=== PATIENT | female | born 1980 | race Caucasian/White ===

== ENCOUNTER 2018-10-08 18:03 | Emergency (ER) | payer BC, OTHER ==
[~2018-10-08] VITALS: Ht 170.2 cm; Wt 73.0 kg
[2018-10-08 18:11] VITALS: Ht 170.2 cm; Wt 73.0 kg
[2018-10-08] MEDS ORDERED: SOD CHLORIDE 0.9% 1,000 ML IV STA (19:30)
[2018-10-08] MEDS ORDERED: ONDANSETRON 4 MG INJ IV STA (19:30)
[2018-10-08] MEDS ORDERED: SOD CHLORIDE 0.9% 100 ML ONE (20:35)
[2018-10-08] MEDS ORDERED: IOHEXOL 300MG/ML 150 ML BTL ONE (20:35)
--- NOTE | 2018-10-08 21:20 | ERD ---
ER Documentation Chief Complaint Chief Complaint abdominal pain, bloating and black stool x 3 weeks HPI This patient is a 37-year-old female with past medical history of H. pylori, currently on 30 days of treatment, presenting to the emergency department severe abdominal pain which is intermittent for the past 2 weeks but worse over the past 2 days. Patient also reports black tarry stools intermittently. She reports nausea but no vomiting or diarrhea. Pain is rated 8/10 in severity. She denies any other symptoms currently. ROS All systems reviewed and are negative except as per history of present illness. Medications Home Meds Active Scripts Polyethylene Glycol* (Miralax*) 17 Gm Powd.pack, 17 GM PO DAILY, #7 Prov:SLIM THOMPSON PA-C 10/08/18 Acetaminophen* (Tylenol*) 325 Mg Tablet, 2 TAB PO Q6 PRN for PAIN AND OR ELEVATED TEMP, #20 TAB Prov:SLIM THOMPSON PA-C 10/08/18 Cephalexin* (Keflex*) 500 Mg Capsule, 500 MG PO QID for 7 Days, CAP Prov:LSIM THOMPSON PA-C 10/08/18 Allergies Allergies: Coded Allergies: No Known Allergy (Unverified , 10/08/18) PMhx/Soc Medical and Surgical Hx: pt denies Medical Hx, pt denies Surgical Hx Hx Alcohol Use: No Hx Substance Use: No Hx Tobacco Use: No Smoking Status: Never smoker FmHx Family History: No diabetes Physical Exam Vitals Vital Signs Date Temp Pulse Resp B/P (MAP) Pulse Ox O2 O2 Flow FiO2 Time Delivery Rate 10/08/18 99.1 71 18 132/78 100 18:11 (96) Physical Exam Const: No acute distress Head: Atraumatic Eyes: Normal Conjunctiva ENT: Normal External Ears, Nose and Mouth. Neck: Full range of motion. No meningismus. Resp: Clear to auscultation bilaterally Cardio: Regular rate and rhythm, no murmurs Abd: Soft, non tender, non distended. Normal bowel sounds. No rebound tenderness guarding. No McBurney's point tenderness. Skin: No petechiae or rashes Back: No midline or flank tenderness Ext: No cyanosis, or edema Neur: Awake and alert Psych: Normal Mood and Affect Result Diagram: 10/08/18194210/08/181942 Results 24 hrs Laboratory Tests Test 10/08/18 19:43 10/08/18 19:45 White Blood Count 7.4 10^3/ul Red Blood Count 4.00 10^6/ul Hemoglobin 12.6 g/dl Hematocrit 38.3 % Mean Corpuscular Volume 95.8 fl Mean Corpuscular Hemoglobin 31.5 pg Mean Corpuscular Hemoglobin Concent 32.9 g/dl Red Cell Distribution Width 11.8 % Platelet Count 127 10^3/UL Mean Platelet Volume 10.4 fl Immature Granulocytes % 0.100 % Neutrophils % 43.7 % Lymphocytes % 39.5 % Monocytes % 10.2 % Eosinophils % 4.9 % Basophils % 1.6 % Nucleated Red Blood Cells % 0.0 /100WBC Immature Granulocytes # 0.010 10^3/ul Neutrophils # 3.2 10^3/ul Lymphocytes # 2.9 10^3/ul Monocytes # 0.8 10^3/ul Eosinophils # 0.4 10^3/ul Basophils # 0.1 10^3/ul Nucleated Red Blood Cells # 0.0 10^3/ul Prothrombin Time 12.9 Sec Prothrombin Time Ratio 1.0 INR International Normalized Ratio 0.96 Activated Partial Thromboplast Time 30.3 Sec Urine Color YELLOW Urine Clarity SLIGHTLY CLOUDY Urine pH 8.0 Urine Specific [place] 1.011 Urine Ketones NEGATIVE mg/dL Urine Nitrite NEGATIVE mg/dL Urine Bilirubin NEGATIVE mg/dL Urine Urobilinogen NEGATIVE mg/dL Urine Leukocyte Esterase 2+ Francesca/ul Urine Microscopic RBC 5 /HPF Urine Microscopic WBC 6 /HPF Urine Squamous Epithelial Cells MODERATE /HPF Urine Bacteria FEW /HPF Urine Hemoglobin NEGATIVE mg/dL Urine Glucose NEGATIVE mg/dL Urine Total Protein NEGATIVE mg/dl Sodium Level 140 mmol/L Potassium Level 3.7 mmol/L Chloride Level 104 mmol/L Carbon Dioxide Level 27 mmol/L Anion Gap 9 Blood Urea Nitrogen 8 mg/dl Creatinine 0.64 mg/dl Est Glomerular Filtrat Rate mL/min > 60 mL/min Glucose Level 86 mg/dl Calcium Level 8.9 mg/dl Total Bilirubin 0.3 mg/dl Direct Bilirubin 0.00 mg/dl Indirect Bilirubin 0.3 mg/dl Aspartate Amino Transf (AST/SGOT) 24 IU/L Alanine Aminotransferase (ALT/SGPT) 25 IU/L Alkaline Phosphatase 51 IU/L Total Protein 8.0 g/dl Albumin 4.7 g/dl Globulin 3.30 g/dl Albumin/Globulin Ratio 1.42 Lipase 78 U/L POC Beta HCG, Qualitative NEGATIVE Current Medications Medications Dose Sig/Dipika Start Time Status Last (Trade) Ordered Route PRN Stop Time Admin Dose Reason Admin Sodium 1,000 ml @ Q1H STAT 10/08/18 DC 10/08/18 Chloride 1,000 mls/hr IV 19:30 19:50 10/08/18 20:29 Ondansetron 4 mg ONCE STAT 10/08/18 DC 10/08/18 HCl (Zofran IV 19:30 19:49 Inj) 10/08/18 19:33 IV Flush 10 ml STK-MED 10/08/18 DC (NS 10 ml) ONCE .ROUTE 20:35 10/08/18 20:36 Sodium 100 ml @ ud STK-MED 10/08/18 DC Chloride ONCE .ROUTE 20:35 10/08/18 20:36 Iohexol 150 ml STK-MED 10/08/18 DC (Omnipaque ONCE .ROUTE 20:35 300mg/ ml) 10/08/18 20:36 Procedures/MDM 37 old female presented to the emergency department planing of severe abdominal pain and black tarry stools. Physical examination was unremarkable. Abdominal examination is not concerning for acute surgical abdomen, however given patient's history I did feel that further work-up was indicated. Laboratory studies and CT abdomen and pelvis was obtained. Patient was administered IV fluids and IV Zofran with improvement of her symptoms. CBC: no e/o of systemic infection or severe anemia CMP: no e/o severe acidosis, alkalosis, renal failure, diabetic ke toacidosis, liver disease Lipase: no e/o pancreatitis PT/INR: normal coagulation Urine: no e/o acute infection or hematuria CT abdomen and pelvis with contrast: Moderate retained stool. Further findings as discussed above by the radiologist. Medical decision making: Patient symptoms likely secondary to urinary tract infection and constipation. Patient will be given prescription for Keflex, Tylenol, and MiraLAX. Patient's gastrointestinal symptoms have stabilized while in the department. No evidence of bowel obstruction, severe dehydration, sepsis, or surgical abdomen. Extensive discussion with family and patient that occult disease cannot be ruled out. 8 hour recheck for repeat abdominal exam is planned. No evidence of life-threatening pathology at time of discharge. Pt/family in agreement with discharge plan/diagnosis. Pt/family advised to return immediately with any new or worsening symptoms. Follow-up with primary care physician within the next 1-2 days. Departure Diagnosis: Primary Impression: Abdominal pain Abdominal location: generalized Qualified Codes: R10.84 - Generalized abdominal pain Additional Impression: UTI (urinary tract infection) Condition: Fair Patient Instructions: Abdominal Pain, Understanding Urinary Tract Infections (UTIs) Additional Instructions: Follow up with your PCP within the next 1-3 days for a repeat evaluation. If you require a referral to a specialist, your Primary Care Provider may be able to provide this for you. In most patient cases, a referral is not required. If you have further questions regarding this matter, please ask your Primary Care Provider. Return the the emergency department immediately if symptoms worsen or change. If you have any questions regarding medications, ask your pharmacist or us before you leave. If any adverse reactions, occur while taking your medications, discontinue the treatment and return to the emergency department immediately. If any new or worsening symptoms, uncontrolled fevers, or other unexplained symptoms occur, return to the emergency department immediately. Take your medications as directed, and complete the entire course of treatment. SLIM THOMPSON PA-C Oct 08, 2018 21:20
[2018-10-08] MEDS ORDERED: ACET325T33 PO (21:23)
[2018-10-08] MEDS ORDERED: CEPH-443 PO (21:23)
[2018-10-08] MEDS ORDERED: POLY17PO6 PO (21:23)
[2018-10-08 21:48] VITALS: BP 111/73; PULSE 66; RESP 17
== END 2018-10-08 21:48 | disposition home or self-care (01) ==
LOC: FTE 18:03
DX: N39.0 Urinary tract infection, site not specified (principal)
CPT/HCPCS: 36415; 74177; 80053; 81001; 81025; 83690; 85025; 85610; 85730; 96374; 99285; J2405; J7030; Q9967